=== PATIENT | male | born 1955 | race Caucasian/White ===

== ENCOUNTER 2017-11-22 06:38 | Day surgery (SDC) | payer OTHER ==
[~2017-11-22] VITALS: Ht 175.3 cm; Wt 79.5 kg
[2017-11-22 06:59] VITALS: BP 123/71; PULSE 54; RESP 20; TEMP 98.1; O2SAT 95
[2017-11-22] MEDS ORDERED: MELA5 PO (07:04)
[2017-11-22] MEDS ORDERED: VITA500T83 PO (07:04)
[2017-11-22] MEDS ORDERED: MAGN500T5 PO (07:04)
[2017-11-22] MEDS ORDERED: OMEGCAP PO (07:04)
[2017-11-22 07:38] LABS: AUTOMATED NEUTROPHIL # 2.4 TH/MM3 (1.8-7.7); BASOPHIL % 0.8 % (0.0-2.0); EOSINOPHIL # 0.1 TH/MM3 (0-0.4); HEMATOCRIT 41.6 % (39.0-51.0); HEMOGLOBIN 14.2 GM/DL (13.0-17.0); LYMPH % 35.1 % (9.0-44.0); LYMPHOCYTE # 1.6 TH/MM3 (1.0-4.8); MEAN CORPUSCULAR HEMOGLOBIN 30.4 PG (27.0-34.0); MEAN CORPUSCULAR HGB CONC 34.2 % (32.0-36.0); MEAN PLATELET VOLUME 9.1 FL (7.0-11.0); MONOCYTE # 0.4 TH/MM3 (0-0.9); NEUT % 53.1 % (16.0-70.0); PLATELET COUNT 197 TH/MM3 (150-450); RED BLOOD COUNT 4.67 MIL/MM3 (4.50-5.90); RED CELL DISTRIBUTION WIDTH 13.4 % (11.6-17.2); WHITE BLOOD COUNT 4.5 TH/MM3 (4.0-11.0)
[2017-11-22 07:50] LABS: INTERNATIONAL NORMALIZED RATIO 1.1 RATIO; PROTHROMBIN TIME - PATIENT 10.7 SEC (9.8-11.6)
[2017-11-22 07:53] LABS: BICARBONATE 30.1 MEQ/L (21.0-32.0); CALCIUM 9.4 MG/DL (8.5-10.1); CREATININE 1.12 MG/DL (0.60-1.30)
[2017-11-22 08:50] VITALS: BP 124/74; PULSE 50; RESP 18; TEMP 98; O2SAT 94
--- NOTE | 2017-11-22 08:51 | PD.RAD ---
Post Procedure Progress Note Pre Procedure Diagnosis: (1) Abnormal gait Post Procedure Diagnosis: (1) Abnormal gait Procedure Date: Nov 22, 2017 Supervising Radiologist: Eliecer Perdomo JR Proceduralist/Assist: Joelle Avelar, RT(R)(CV), José Miguel Chowdary RT(R) Anesthesia: Local Plan of Activity Patient to Unit: ROPU Patient Condition: Good See PACS Report for procedural detail/treatment Spinal Procedure Lumbar Puncture L3-L4 Fluid Removal (CCs): 11 Fluid Description: Clear Puncture Time: 08:41 Findings: Clear CSF obtained. Pt tolerated the procedure well. Jr. Conor,Eliecer Phipps MD Nov 22, 2017 08:51
[2017-11-22] MEDS ORDERED: SODIUM CHLOR 0.9% 1000 ML INJ 1,000 ML IV SCH (09:00)
--- NOTE | 2017-11-22 09:26 | RADRPT ---
EXAM DATE/TIME: 11/22/2017 08:18 [facility] COMPARISON: No previous studies available for comparison. INDICATIONS : Patient with difficulty with gait. Had abnormal MRI. MEDICAL HISTORY : 1. Cervical myelopathy 2. spastic gait 3. spinal stenosis 4. diverticulosis 5. colon polyps SURGICAL HISTORY : no surgical history ENCOUNTER: Initial ACUITY: 3 months PAIN SCORE: 0/10 LUMBAR PUNCTURE TIME: 0841 hours FLUORO TIME: 1.0 minutes IMAGE SERIES: 2 ACCESS LEVEL: L4-5 FLUID: 11 cc of clear CSF was collected and sent to the laboratory for analysis. PROCEDURE : 1. Fluoroscopic guided lumbar puncture. The risks, benefits and alternatives to the procedure were explained and verbal and written consent w as obtained. The site was prepped in sterile fashion. Full sterile technique was used, including ca p, mask, sterile gloves and gown and a large sterile sheet. Hand hygiene and 2% chlorhexidine and/or betadine/alcohol prep was utilized per protocol for cutaneous antisepsis. The skin and subcutaneous tissues were infiltrated with local anesthetic solution. With fluoroscopic guidance the lumbar thecal sac was punctured at the level above. The fluid describ ed above was removed without difficulty. The patient tolerated the procedure well and there were no complications. CONCLUSION: Uncomplicated fluoroscopically guided lumbar puncture. Eliecer Perdomo Jr., MD on November 22, 2017 at 9:24 Board Certified Radiologist. This report was verified electronically.
[2017-11-22 09:30] LABS: TOTAL PROTEIN,CSF 64.8 MG/DL (15.0-45.0)
[2017-11-22 09:51] LABS: RBC TUBE #1 3 /MM3; SUPERNATE COLOR TUBE #1 CLEAR (CLEAR); VOLUME TUBE # 1 2.1 ML; WBC TUBE #1 3 /MM3 (0-10)
[2017-11-22 09:55] LABS: CSF LYMPHOCYTES 73 %; CSF MONOCYTES 28 %
[2017-11-22 10:02] LABS: CSF NEUTROPHILS 0 %
[2017-11-22 10:04] LABS: CSF LYMPHOCYTES 67 %; CSF MONOCYTES 33 %; CSF NEUTROPHILS 0 %; RBC TUBE #4 5 /MM3; WBC TUBE #4 3 /MM3 (0-10)
[2017-11-22 11:10] VITALS: BP 110/67; PULSE 50; RESP 18; TEMP 98.1; O2SAT 95
[2017-11-23 09:50] LABS: ALB/GLOB RATIO (SPE) 2.28 (1.39-2.23)
[2017-11-23 09:58] LABS: CMV DNA QUANT BY RAPID PCR Negative (Negative)
[2017-11-23 16:43] LABS: ALBUMIN CSF 34.3 mg/dL (<=27.0); IGG CSF 4.3 mg/dL (<=8.1); IGG INDEX CSF 0.68 (<=0.85); IGG/ALBUMIN CSF 0.13 (<=0.21); IGG/ALBUMIN SERUM 0.19 (<=0.40); SYNTHESIS RATE CSF 5.42 mg/24 h (<=12)
[2017-11-24 19:53] LABS: CF JC VIRUS DNA NEGATIVE (<10 COPIES); CSF CRYPTOCOCCUS ANTIGEN NOT DETECTED (NEGATIVE); VDRL CSF NON-REACTIVE (NON-REACTVE)
[2017-11-25 09:04] LABS: CSF CRYPTOCOCCUS AG CONF ND (NOT DETECTD)
== END 2017-11-22 11:35 | disposition home or self-care (01) ==
LOC: HROP 06:38 → HRIP 06:39 → HROP 11:35
PROVIDERS: ATTEND Psychiatry & Neurology Vascular Neurology
DX: R93.8 Abnormal findings on diagnostic imaging of other specified body structures (principal); R26.9 Unspecified abnormalities of gait and mobility; G95.9 Disease of spinal cord, unspecified; M48.00 Spinal stenosis, site unspecified; K57.90 Diverticulosis of intestine, part unspecified, without perforation or abscess without bleeding
CPT/HCPCS: 62270; 77003; 80048; 82040; 82042; 82784; 82945; 82947; 83873; 83916; 84157; 84165; 85025; 85610; 85730; 86403; 86592; 87015; 87070; 87102; 87116; 87205; 87206; 87497; 87799; 88108; 89051